=== PATIENT | female | born 1985 ===

== ENCOUNTER → 2021-02-13 | Outpatient (CLI) | payer SELFPAY | END | disposition home or self-care (01) | LOC: LAB SHORT 07:41 | DX: D22.5 Melanocytic nevi of trunk (principal); L81.4 Other melanin hyperpigmentation | CPT/HCPCS: 88305 ==

== ENCOUNTER → 2021-03-15 | Outpatient (CLI) | payer SELFPAY | END | disposition home or self-care (01) | LOC: LAB SHORT 11:12 | DX: L72.11 Pilar cyst (principal) | CPT/HCPCS: 88304 ==

== ENCOUNTER → 2021-11-28 | Outpatient (CLI) | payer BC | END | disposition home or self-care (01) | LOC: LAB SHORT 09:30 → LAB 09:30 | PROVIDERS: Hospitalist | DX: Z12.4 Encounter for screening for malignant neoplasm of cervix (principal) | CPT/HCPCS: G0145 ==